=== PATIENT | female | born 1950 | race Caucasian/White ===

== ENCOUNTER 2019-08-03 18:29 | Inpatient (IN) | payer MEDICARE, OTHER ==
[~2019-08-03] VITALS: Ht 160 cm; Wt 63.2 kg
--- NOTE | 2019-08-03 18:52 | NUR ---
EKG in progress.
[2019-08-03] MEDS ORDERED: normal saline 1000ML IV soln IVB ONE (19:20)
[2019-08-03 19:27] LABS: BASOPHILS # (AUTO) 0.1 X10'3 (0-0.2); BASOPHILS % (AUTO) 0.5 % (0-1); EOSINOPHILS % (AUTO) 0.1 % (0-6); HEMATOCRIT 41.8 % (35.0-45.0); HEMOGLOBIN 14.5 g/dl (12.0-16.0); LYMPHOCYTES # (AUTO) 1.7 X10'3 (1.1-4.8); MEAN CORPUSCULAR HGB CONC 34.6 g/dL (33.0-36.5); MEAN CORPUSCULAR VOLUME 89.7 FL (78-98); MEAN PLATELET VOLUME 6.8 FL (7.4-10.4); MONOCYTES % (AUTO) 7.3 % (2-12); NEUTROPHILS # (AUTO) 11.2 X10'3 (1.8-7.7); NEUTROPHILS % (AUTO) 80.1 % (42-75); PLATELET COUNT 347 X10'3 (140-440); RED BLOOD COUNT 4.66 X10'6 (4.20-5.60); RED CELL DISTRIBUTION WIDTH 11.9 % (11.5-14.5)
[2019-08-03 19:45] LABS: ALANINE AMINOTRANSFERASE 37 U/L (12-78); ALBUMIN 3.7 G/DL (3.4-5.0); ALBUMIN/GLOBULIN RATIO 1.2 (1.1-1.5); ALKALINE PHOSPHATASE 74 IU/L (46-116); ANION GAP 15 (8-16); ASPARTATE AMINO TRANSFERASE 30 U/L (10-37); BILIRUBIN,TOTAL 1.4 MG/DL (0.1-1.0); BLOOD UREA NITROGEN 37 MG/DL (7-18); BUN/CREATININE RATIO 31.4 (6.6-38.0); CALCIUM 8.7 MG/DL (8.5-10.1); CHLORIDE 104 MMOL/L (99-107); CREATININE 1.18 MG/DL (0.40-0.90); GLUCOSE 103 MG/DL (70-104); SODIUM 140 MMOL/L (135-145); TOTAL CARBON DIOXIDE 20.8 MMOL/L (24-32); TOTAL PROTEIN 6.7 G/DL (6.4-8.2); eGFR 45 ML/MIN
[2019-08-03 19:48] LABS: POTASSIUM 2.8 MMOL/L (3.5-5.1)
[2019-08-03 20:00] LABS: MAGNESIUM 1.9 MG/DL (1.5-2.4)
[2019-08-03] MEDS ORDERED: normal saline 1000ml 1,000 ML IV SCH (20:04)
[2019-08-03] MEDS ORDERED: magnesium 2GM in 50ml NS 50 ML IV PRN (20:05)
[2019-08-03] MEDS ORDERED: potassium Cl 20 mEq SR tablet PO PRN (20:05)
[2019-08-03] MEDS ORDERED: magnesium 4gm in 100ml NS 100 ML IV PRN (20:05)
[2019-08-03] MEDS ORDERED: potassium CL 10mEq/100ml bag 100 ML IV PRN ×2 (20:05)
[2019-08-03] MEDS ORDERED: ondansetron/PF 4mg/2ml inj IV PRN (20:05)
[2019-08-03] MEDS ORDERED: aspirin 81mg tab.chew PO ONE (20:20)
[2019-08-03] MEDS ORDERED: Potassium Cl inj 20 MEQ in normal saline 1000ml 990 ML IV SCH (20:40)
--- NOTE | 2019-08-03 20:42 | NUR ---
Attempted to call report to bedside RN, they will call back this report in 10mins.
[2019-08-03] MEDS ORDERED: hydrALAZINE 20mg/ml inj. IV PRN (21:45)
[2019-08-03] MEDS: enoxaparin 60mg/0.6ml syringe SUBCUT SCH (22:26)
[2019-08-03] MEDS: potassium Cl 20mEq in NS 1,000 ML IV SCH (22:26)
[2019-08-03] MEDS: ciprofloxacin/D5W 200mg/100mL 100 ML IV SCH (22:43)
[2019-08-03 23:00] VITALS: BP 175/97
[2019-08-04] MEDS: pantoprazole 40 MG vial IV SCH ×2 (00:44→08:31)
[2019-08-04] MEDS: metroNIDAZOLE-Flagyl 500mg/NS 100 ML IV SCH ×4 (00:44→17:17)
[2019-08-04] MEDS: potassium Cl 20mEq in NS 1,000 ML IV SCH ×3 (01:45→17:17)
[2019-08-04 02:06] LABS: BASOPHILS % (AUTO) 0.1 % (0-1); EOSINOPHILS % (AUTO) 0 % (0-6); HEMATOCRIT 40.2 % (35.0-45.0); HEMOGLOBIN 13.8 g/dl (12.0-16.0); LYMPHOCYTES # (AUTO) 1.6 X10'3 (1.1-4.8); LYMPHOCYTES % (AUTO) 10.2 % (21-51); MEAN CORPUSCULAR HEMOGLOBIN 30.9 PG (27.0-31.0); MEAN CORPUSCULAR HGB CONC 34.4 g/dL (33.0-36.5); MEAN CORPUSCULAR VOLUME 90.1 FL (78-98); MEAN PLATELET VOLUME 6.8 FL (7.4-10.4); MONOCYTES % (AUTO) 6.7 % (2-12); NEUTROPHILS # (AUTO) 12.7 X10'3 (1.8-7.7); PLATELET COUNT 346 X10'3 (140-440); RED BLOOD COUNT 4.46 X10'6 (4.20-5.60); RED CELL DISTRIBUTION WIDTH 12.2 % (11.5-14.5); WHITE BLOOD COUNT 15.3 X10'3 (4.5-11.0)
[2019-08-04 02:25] LABS: ALBUMIN 3.4 G/DL (3.4-5.0); ALKALINE PHOSPHATASE 68 IU/L (46-116); BLOOD UREA NITROGEN 36 MG/DL (7-18); CHLORIDE 105 MMOL/L (99-107); LDL CHOLESTEROL 61 MG/DL (50-100)
[2019-08-04 02:44] LABS: ALANINE AMINOTRANSFERASE 40 U/L (12-78); ALBUMIN/GLOBULIN RATIO 1.3 (1.1-1.5); ANION GAP 13 (8-16); ASPARTATE AMINO TRANSFERASE 29 U/L (10-37); BILIRUBIN,TOTAL 1.4 MG/DL (0.1-1.0); BUN/CREATININE RATIO 31.9 (6.6-38.0); CHOL/HDL RATIO 2.7 (0.00-4.99); CHOLESTEROL 131 MG/DL (0-200); CREATININE 1.13 MG/DL (0.40-0.90); GLUCOSE 99 MG/DL (70-104); HDL CHOLESTEROL 49 MG/DL (35-60); MAGNESIUM 1.8 MG/DL (1.5-2.4); SODIUM 141 MMOL/L (135-145); TOTAL CARBON DIOXIDE 22.7 MMOL/L (24-32); TOTAL PROTEIN 6.1 G/DL (6.4-8.2); TRIGLYCERIDES 144 MG/DL (20-135); eGFR 48 ML/MIN
[2019-08-04 02:46] LABS: POTASSIUM 2.6 MMOL/L (3.5-5.1)
[2019-08-04 03:00] VITALS: BP 155/92
[2019-08-04] MEDS: potassium Cl 20 mEq SR tablet PO PRN ×3 (03:12→12:39)
[2019-08-04 06:00] VITALS: BP 113/93
[2019-08-04] MEDS ORDERED: enoxaparin 40mg/0.4ml syringe SQ SCH (08:00)
[2019-08-04] MEDS ORDERED: aspirin 325mg tablet, delayed-release (Ecotrin) PO SCH (08:00)
[2019-08-04] MEDS: K and/or MAG REPLACEMENT MC SCH ×2 (08:00→20:00)
[2019-08-04] MEDS: ciprofloxacin/D5W 200mg/100mL 100 ML IV SCH ×2 (08:31→21:02)
[2019-08-04] MEDS: enoxaparin 60mg/0.6ml syringe SUBCUT SCH ×2 (08:32→19:29)
[2019-08-04 11:00] VITALS: BP 159/94
[2019-08-04] MEDS ORDERED: METO-384 PO ×2 (14:46→17:55)
[2019-08-04] MEDS ORDERED: LISI-600 PO ×2 (14:47→18:22)
[2019-08-04] MEDS ORDERED: HYDR-3568 PO ×2 (14:54→18:25)
[2019-08-04] MEDS ORDERED: GABA600T13 PO (14:54)
[2019-08-04] MEDS ORDERED: CLON0.1T2 PO (14:54)
[2019-08-04] MEDS ORDERED: LISI40TA4 PO (14:57)
[2019-08-04 15:00] VITALS: BP 172/89
--- NOTE | 2019-08-04 16:40 | NUR ---
Initial: Pt admit with type II [place] and sepsis likely secondary to gastroenteritis with possible gastritis versus peptic ulcer disease. Pt currently on a heart healthy diet documented with 0-25% PO intake first meal not meeting nutrient needs. Pt seen at bedside provided with written and verbal protein education with alternative heart healthy menu to provide additional food options. Pt reports low appetite x 1 month however with no food preferences at this time. Pt reports 20 lb wt loss in two months with UBW 140 lb however reports most recent scaled wt was 129 lbs; current documented wt is 139 lbs however is pt stated. Unlikely that pt lost this reported amount of weight. Pt denies food allergies, difficulty chewing/swallowing, or constipation/diarrhea. LBM 08/01, pt agrees to prunes with dinner courtney d/w nia. RD contact information provided. Will continue to follow closely. Recommendations: 1) Continue heart healthy diet 2) Encourage PO intake 3) Monitor need for ONS 4) Routine bowel care 5) Wt per rx Addendum: 08/04/19 at [address] Amended: Links added.
--- NOTE | 2019-08-04 17:32 | NUR ---
Med rec was done and Dr Genao notifed
[2019-08-04] MEDS ORDERED: GABA-532 PO (17:40)
[2019-08-04] MEDS ORDERED: LISI10TA4 PO (17:52)
[2019-08-04] MEDS ORDERED: CLON-529 PO ×2 (17:52→17:57)
[2019-08-04 18:00] VITALS: BP 161/99
[2019-08-04] MEDS ORDERED: lisinopril 20mg tablet PO SCH (18:40)
[2019-08-04] MEDS: gabapentin 300mg capsule PO SCH (19:28)
[2019-08-04] MEDS: lactobacillus rhamnosus 10,000 MMU CELLS/CAPSULE PO SCH (19:29)
[2019-08-04] MEDS: cloNIDine 0.1 mg tablet PO SCH (21:02)
[2019-08-04 22:00] VITALS: BP 163/93
[2019-08-05] VITALS (12 sets, daily range): BP systolic 134–160; BP diastolic 71–99
[2019-08-05] MEDS: metroNIDAZOLE-Flagyl 500mg/NS 100 ML IV SCH ×3 (00:53→16:39)
[2019-08-05 05:29] LABS: BASOPHILS % (AUTO) 0.1 % (0-1); EOSINOPHILS % (AUTO) 0.1 % (0-6); HEMATOCRIT 35.6 % (35.0-45.0); HEMOGLOBIN 12.3 g/dl (12.0-16.0); LYMPHOCYTES # (AUTO) 2.1 X10'3 (1.1-4.8); MEAN CORPUSCULAR HEMOGLOBIN 31.4 PG (27.0-31.0); MEAN CORPUSCULAR HGB CONC 34.6 g/dL (33.0-36.5); MEAN CORPUSCULAR VOLUME 90.9 FL (78-98); MONOCYTES # (AUTO) 0.8 X10'3 (0-0.9); MONOCYTES % (AUTO) 6.7 % (2-12); NEUTROPHILS # (AUTO) 9.2 X10'3 (1.8-7.7); NEUTROPHILS % (AUTO) 76.1 % (42-75); PLATELET COUNT 307 X10'3 (140-440); RED BLOOD COUNT 3.92 X10'6 (4.20-5.60); RED CELL DISTRIBUTION WIDTH 12.1 % (11.5-14.5); WHITE BLOOD COUNT 12.1 X10'3 (4.5-11.0)
[2019-08-05 05:51] LABS: ALANINE AMINOTRANSFERASE 29 U/L (12-78); ALBUMIN 3.1 G/DL (3.4-5.0); ALBUMIN/GLOBULIN RATIO 1.2 (1.1-1.5); ALKALINE PHOSPHATASE 61 IU/L (46-116); ANION GAP 13 (8-16); ASPARTATE AMINO TRANSFERASE 17 U/L (10-37); BILIRUBIN,TOTAL 0.9 MG/DL (0.1-1.0); BLOOD UREA NITROGEN 16 MG/DL (7-18); BUN/CREATININE RATIO 16.3 (6.6-38.0); CALCIUM 8.2 MG/DL (8.5-10.1); CHLORIDE 108 MMOL/L (99-107); CREATININE 0.98 MG/DL (0.40-0.90); GLUCOSE 100 MG/DL (70-104); MAGNESIUM 1.5 MG/DL (1.5-2.4); SODIUM 140 MMOL/L (135-145); TOTAL CARBON DIOXIDE 19.3 MMOL/L (24-32); TOTAL PROTEIN 5.7 G/DL (6.4-8.2); eGFR 56 ML/MIN
--- NOTE | 2019-08-05 06:02 | NUR ---
Problems reprioritized. Patient report given, questions answered & plan of care reviewed with Sravani OBRIEN.
--- NOTE | 2019-08-05 06:05 | NUR ---
Patient in room PCU 3012. I have received report from MICAH Wolf and had the opportunity to ask questions and assume patient care.
[2019-08-05] MEDS: ciprofloxacin/D5W 200mg/100mL 100 ML IV SCH ×2 (07:53→21:19)
[2019-08-05] MEDS: lactobacillus rhamnosus 10,000 MMU CELLS/CAPSULE PO SCH ×2 (07:54→21:19)
[2019-08-05] MEDS: pantoprazole 40 MG vial IV SCH (07:54)
[2019-08-05] MEDS: acetaminophen 325mg tablet PO PRN (07:54)
[2019-08-05] MEDS: gabapentin 300mg capsule PO SCH ×2 (07:54→21:19)
[2019-08-05] MEDS: enoxaparin 60mg/0.6ml syringe SUBCUT SCH ×2 (07:55→21:20)
[2019-08-05] MEDS: metoprolol succinate 25mg (24-HOUR) SR. Tablet PO SCH (07:55)
[2019-08-05] MEDS: K and/or MAG REPLACEMENT MC SCH ×2 (08:00→20:00)
[2019-08-05] MEDS ORDERED: nitroGLYCERIN 0.4mg SUBLingual tab SL PRN (12:10)
[2019-08-05] MEDS ORDERED: regadenoson 0.4mg/5ml syringe IV ONE (12:10)
[2019-08-05] MEDS ORDERED: aminophylline 250mg/10ml inj. IV PRN (12:10)
[2019-08-05] MEDS ORDERED: metoprolol tartrate 1mg/ml inj IV PRN (12:10)
--- NOTE | 2019-08-05 18:55 | NUR ---
Patient in room [facility] 3013B. I have received report from Sravani OBRIEN, and had the opportunity to ask questions and assume patient care Addendum: 08/05/19 at 1856 by Wyatt Schuster RN Patient in room [place] [id number]. I have received report from Sravani OBRIEN, and had the opportunity to ask questions and assume patient care
[2019-08-05] MEDS ORDERED: lisinopril 20mg tablet PO SCH (20:00)
[2019-08-05] MEDS: cloNIDine 0.1 mg tablet PO SCH (21:20)
[2019-08-05] MEDS: lisinopril 20mg tablet PO SCH (21:23)
[2019-08-06] MEDS: metroNIDAZOLE-Flagyl 500mg/NS 100 ML IV SCH ×2 (00:04→09:24)
[2019-08-06 01:04] VITALS: BP 148/85
[2019-08-06] MEDS: acetaminophen 325mg tablet PO PRN (01:30)
[2019-08-06 03:00] VITALS: BP 160/87
[2019-08-06 05:53] LABS: BASOPHILS % (AUTO) 0.2 % (0-1); EOSINOPHILS % (AUTO) 0.1 % (0-6); HEMATOCRIT 36.7 % (35.0-45.0); HEMOGLOBIN 12.7 g/dl (12.0-16.0); LYMPHOCYTES # (AUTO) 3.1 X10'3 (1.1-4.8); LYMPHOCYTES % (AUTO) 21.5 % (21-51); MEAN CORPUSCULAR HEMOGLOBIN 31.5 PG (27.0-31.0); MEAN CORPUSCULAR HGB CONC 34.6 g/dL (33.0-36.5); MEAN CORPUSCULAR VOLUME 91.3 FL (78-98); MEAN PLATELET VOLUME 6.7 FL (7.4-10.4); MONOCYTES % (AUTO) 7.2 % (2-12); NEUTROPHILS # (AUTO) 10.4 X10'3 (1.8-7.7); PLATELET COUNT 368 X10'3 (140-440); RED BLOOD COUNT 4.02 X10'6 (4.20-5.60); RED CELL DISTRIBUTION WIDTH 12.4 % (11.5-14.5); WHITE BLOOD COUNT 14.6 X10'3 (4.5-11.0)
[2019-08-06 06:00] VITALS: BP 160/69
--- NOTE | 2019-08-06 06:11 | NUR ---
Problems reprioritized. Patient report given, questions answered & plan of care reviewed with MICAH Resendiz.
[2019-08-06 06:40] LABS: ALANINE AMINOTRANSFERASE 29 U/L (12-78); ALBUMIN 3.5 G/DL (3.4-5.0); ALBUMIN/GLOBULIN RATIO 1.3 (1.1-1.5); ALKALINE PHOSPHATASE 68 IU/L (46-116); ANION GAP 10 (8-16); ASPARTATE AMINO TRANSFERASE 17 U/L (10-37); BLOOD UREA NITROGEN 11 MG/DL (7-18); BUN/CREATININE RATIO 9.3 (6.6-38.0); CALCIUM 8.4 MG/DL (8.5-10.1); CHLORIDE 102 MMOL/L (99-107); CREATININE 1.18 MG/DL (0.40-0.90); GLUCOSE 119 MG/DL (70-104); MAGNESIUM 1.3 MG/DL (1.5-2.4); POTASSIUM 3.2 MMOL/L (3.5-5.1); SODIUM 135 MMOL/L (135-145); TOTAL CARBON DIOXIDE 23.5 MMOL/L (24-32); TOTAL PROTEIN 6.2 G/DL (6.4-8.2); eGFR 45 ML/MIN
--- NOTE | 2019-08-06 06:43 | NUR ---
Patient in room PCU 3012. I have received report from Wero OBRIEN and had the opportunity to ask questions and assume patient care. All patients' needs met at this time.
[2019-08-06] MEDS ORDERED: magnesium Cl slow-release 64mg tablet PO PRN (07:15)
[2019-08-06] MEDS ORDERED: pantoprazole 40mg Tablet.DR PO SCH (07:30)
[2019-08-06] MEDS: K and/or MAG REPLACEMENT MC SCH (08:00)
[2019-08-06] MEDS: lactobacillus rhamnosus 10,000 MMU CELLS/CAPSULE PO SCH (09:18)
[2019-08-06 09:19] VITALS: BP_SYST 160
[2019-08-06] MEDS: lisinopril 20mg tablet PO SCH (09:19)
[2019-08-06] MEDS: gabapentin 300mg capsule PO SCH (09:20)
[2019-08-06] MEDS: metoprolol succinate 25mg (24-HOUR) SR. Tablet PO SCH (09:20)
[2019-08-06] MEDS: enoxaparin 60mg/0.6ml syringe SUBCUT SCH (09:21)
[2019-08-06] MEDS: ciprofloxacin/D5W 200mg/100mL 100 ML IV SCH (11:09)
[2019-08-06] MEDS ORDERED: METR500T PO (11:22)
[2019-08-06] MEDS ORDERED: CIPR-230 PO (11:22)
--- NOTE | 2019-08-06 14:55 | NUR ---
Patient is stable for discharge per MD orders. All discharge instructions reviewed with patient and all questions were answered. Patient will make own appointment with primary care provider within one week. New prescriptions were called into the [facility] pharmacy on [address]. PIV discontinued, cannula intact. electronic device monitor discontinued, notified telegraph service clerk that patient is being discharged. All belongings collected and sent with patient. Wheeled to lobby by RN, assisted by family.
== END 2019-08-06 14:53 | disposition home or self-care (01) | DRG 871 ==
LOC: ER 18:30 → ED HOLD 20:16 → PCU 3S 21:00
PROVIDERS: ADMIT Family Medicine; ATTEND Internal Medicine
PROC: 4A02XM4 Measurement of Cardiac Total Activity, External Approach (ICD-10-PCS; principal; 2019-08-05)
PROC: 3E033HZ Introduction of Radioactive Substance into Peripheral Vein, Percutaneous Approach (ICD-10-PCS; 2019-08-05)
DX: A41.9 Sepsis, unspecified organism (principal); I21.A1 Myocardial infarction type 2; N17.0 Acute kidney failure with tubular necrosis; E78.00 Pure hypercholesterolemia, unspecified; E78.5 Hyperlipidemia, unspecified; E86.0 Dehydration; I10 Essential (primary) hypertension; J45.909 Unspecified asthma, uncomplicated; M81.0 Age-related osteoporosis without current pathological fracture; Z96.641 Presence of right artificial hip joint; E87.6 Hypokalemia; Z77.22 Contact with and (suspected) exposure to environmental tobacco smoke (acute) (chronic); K29.70 Gastritis, unspecified, without bleeding; A08.4 Viral intestinal infection, unspecified; Z82.49 Family history of ischemic heart disease and other diseases of the circulatory system; Z83.3 Family history of diabetes mellitus
CPT/HCPCS: 36415; 71045; 74176; 78452; 80053; 80061; 83605; 83735; 84132; 84145; 84484; 85025; 87040; 87081; 93005; 93017; 93306; 99285; A9500; C9113; G0378; J0280; J0744; J1650; J2785; J3480; J3490; J7030